=== PATIENT | male | born 1970 | race Caucasian/White ===

== ENCOUNTER 2022-11-22 14:41 | Inpatient (IN) | payer OTHER ==
[~2022-11-22] VITALS: Ht 175.3 cm; Wt 91.6 kg
[2022-11-22 15:48] LABS: BASOPHILS ABSOLUTE AUTO 0.06 K/mm3 (0.00-0.23); BASOPHILS PERCENT AUTO 1 % (0-2); EOSINOPHILS PERCENT AUTO 2 % (0-6); Hematocrit 45.9 % (37.0-53.0); Hemoglobin 16.6 g/dL (13.5-17.5); IMMATURE GRAN ABSOLUTE AUTO 0.04 K/mm3 (0.00-0.10); IMMATURE GRAN PERCENT AUTO 0 % (0-1); LYMPHOCYTES ABSOLUTE AUTO 2.16 K/mm3 (0.84-5.20); LYMPHOCYTES PERCENT AUTO 20 % (21-46); MONOCYTES ABSOLUTE AUTO 0.88 K/mm3 (0.16-1.47); MONOCYTES PERCENT AUTO 8 % (4-13); Mean Corpuscular HGB Conc 36.2 g/dL (31.5-36.5); Mean Corpuscular Volume 91 fL (80-100); Mean Platelet Volume 10.3 fL (9.1-12.4); NEUTROPHILS ABSOLUTE AUTO 7.65 K/mm3 (1.96-9.15); NEUTROPHILS PERCENT AUTO 70 % (41-73); Platelet Count 275 K/mm3 (150-400); RDW Coefficient Variation 12.8 % (11.7-14.2); RDW Standard Deviation 42.8 fL (35.1-46.3); Red Blood Cell Count 5.03 M/mm3 (4.30-5.90); White Blood Cell Count 10.99 K/mm3 (4.00-11.30)
[2022-11-22 16:05] LABS: Albumin, Blood 3.7 g/dL (3.4-5.0); Albumin/Globulin Ratio 1.1 (0.8-1.8); Bilirubin, Total 0.5 mg/dL (0.1-1.0); Bun/Creatinine Ratio 13.7 (12.0-20.0); Calcium, Blood 9.7 mg/dL (8.5-10.1); Creatinine, Blood 0.87 mg/dL (0.60-1.20); Globulin, Blood 3.4 g/dL (2.2-4.0); Potassium, Blood 3.8 mmol/L (3.5-5.5); Total Protein, Blood 7.1 g/dL (6.4-8.2)
[2022-11-22] MEDS ORDERED: CYCL10 PO (16:31)
[2022-11-22] MEDS ORDERED: QUET25 PO (16:32)
[2022-11-22] MEDS ORDERED: TRAZ100 PO (16:33)
[2022-11-22 16:46] LABS: Anti-Xa UFH, PHA Monitoring <0.10 IU/mL; Prothrombin Time Results 10.5 Sec (9.7-11.5)
[2022-11-22 20:01] VITALS: BP 139/88
[2022-11-23] VITALS (23 sets, daily range): BP systolic 102–157; BP diastolic 73–104
[2022-11-23 04:19] LABS: Anion Gap 7 mmol/L (6-16); Blood Urea Nitrogen 10 mg/dL (8-24); Bun/Creatinine Ratio 11.7 (12.0-20.0); CHOL/HDL RATIO 5.2; CO2, Blood 27 mmol/L (21-32); Calcium, Blood 8.6 mg/dL (8.5-10.1); Chloride, Blood 108 mmol/L (98-108); Cholesterol 197 mg/dL (50-200); Creatinine, Blood 0.85 mg/dL (0.60-1.20); Glomerular Filtration Rate 104 (60-); Glucose, Blood 114 mg/dL (70-99); HDL Cholesterol 38 mg/dL (>39); LDL/HDL RATIO 3.2; Low Density Lipoprotein Chol 122 mg/dL (0-110); Magnesium, Blood 1.8 mg/dL (1.6-2.4); Sodium, Blood 142 mmol/L (136-145); Triglycerides 184 mg/dL (30-160); Very Low Density Lipoprot Chol 36 mg/dL (6-32)
--- NOTE | 2022-11-23 07:35 | NUR ---
TRACE EVIDENCE TECHNICIAN SUMMARY ASSUMED CARE OF THE PT AT 1999 ON ADMISSION FROM THE ER. HE IS ALERT AND ORIENTED X4, COOPERATIVE WITH CARE. PT HAD CHEST PAIN THAT WAS RELIEVED WITH 4 MG OF IV MORPHINE. CURRENTLY ON HEPARIN DRIP MANAGED BY PHARMACY. PT USES URINAL INDEPENDENTLY. TROPONINS TRENDING UP. CARDIOLOGY CONSULT FOR TODAY. SINUS KRYSTEN ON TELE. SATURATIONS IN THE HIGH 90S ON RA. BP STABLE.
--- NOTE | 2022-11-23 10:27 | NUR ---
AM NOTES: PT ALERT AND ORIENTED AT BASELINE. DENIES NAUSEA AND VOMITING, HAS SOME CHEST SORENESS 3/10 THAT IS BETTER FROM YESTERDAY PER PT, VITALS HRR SR 60'S, SBP 100'S, SPO2 ABOVE 95% ON RA, AFEBRILE. AT THE BEDSIDE EARLIER WHEN DR BAILON CAME IN TO EXPLAIN PROCEDURE AND PLAN WITH THE PT. PT FOR ANGIO TODAY. STARTED LAODING DOSE OF PLAVIX THIS MORNING. MEDICATED WITH TYLENOL FOR NECK PAIN AND HEAD ACHE. NO OTHER COMPLAINS AT THIS TIME, PT RESTING IN BED, CALL LIGHTS IN [facility] CONTINUE TO MONITOR
--- NOTE | 2022-11-23 13:30 | NUR ---
PT ARRIVED BACK FROM THE [facility]ATE[facility]IST HAD 1 STENT ON PROX CIRC. VITALS HRR SR 60'S, SBP 120'S, SATS ABOVE 95% ON RA, AFEBRILE. RIGHT RADIAL SITE WITH TR BAND 10CC OF AIR. ECHO ONGOING RIGHT NOW. FAMILY AT THE BEDSIDE. NS RUNNING AT 200MLS/HR. DIET RESUMED, NO OTHER ISSUES AT THIS TIME, WILL CONTINUE TO MONITOR
--- NOTE | 2022-11-23 18:49 | NUR ---
PT SUMMARY: PT POST ANGIO TODAY WITH RIGHT RADIAL SITE FULLY RECOVERED, CLEAR DRESSING IN PLACE NO HEMATOME OR BLEEDING NOTED. PT COMPLIANT WITH RIGHT ARM RESTRICTIONS. DENIES CHEST PAIN/PRESSURE. PLAN TO DC IN AM IF NO ISSUES VITALS HAS BEEN STABLE. HAS BEEN AT THE BEDSIDE MOST OF THE SHIFT AWARE OF THE PLAN OF CARE. SERVICE DOG IN THE ROOM PER PT'S REQUEST. NO OTHER ISSUES AT THIS TIME. WILL REPORT TO ONCOMING SHIFT
[2022-11-24 04:17] VITALS: BP 101/74
[2022-11-24 04:22] LABS: BASOPHILS ABSOLUTE AUTO 0.06 K/mm3 (0.00-0.23); BASOPHILS PERCENT AUTO 1 % (0-2); EOSINOPHILS ABSOLUTE AUTO 0.23 K/mm3 (0.00-0.68); EOSINOPHILS PERCENT AUTO 2 % (0-6); Hematocrit 45.1 % (37.0-53.0); Hemoglobin 15.7 g/dL (13.5-17.5); IMMATURE GRAN ABSOLUTE AUTO 0.04 K/mm3 (0.00-0.10); IMMATURE GRAN PERCENT AUTO 0 % (0-1); LYMPHOCYTES ABSOLUTE AUTO 3.09 K/mm3 (0.84-5.20); LYMPHOCYTES PERCENT AUTO 31 % (21-46); MONOCYTES ABSOLUTE AUTO 0.88 K/mm3 (0.16-1.47); MONOCYTES PERCENT AUTO 9 % (4-13); Mean Corpuscular HGB 32.5 pg (26.0-34.0); Mean Corpuscular HGB Conc 34.8 g/dL (31.5-36.5); Mean Corpuscular Volume 93 fL (80-100); NEUTROPHILS ABSOLUTE AUTO 5.62 K/mm3 (1.96-9.15); NEUTROPHILS PERCENT AUTO 57 % (41-73); Platelet Count 237 K/mm3 (150-400); RDW Coefficient Variation 13.1 % (11.7-14.2); RDW Standard Deviation 44.6 fL (35.1-46.3); Red Blood Cell Count 4.83 M/mm3 (4.30-5.90); White Blood Cell Count 9.92 K/mm3 (4.00-11.30)
[2022-11-24 04:55] LABS: Albumin, Blood 3.4 g/dL (3.4-5.0); Bilirubin, Total 0.9 mg/dL (0.1-1.0); Calcium, Blood 8.9 mg/dL (8.5-10.1); Creatinine, Blood 0.91 mg/dL (0.60-1.20); Globulin, Blood 3.3 g/dL (2.2-4.0); Magnesium, Blood 2.1 mg/dL (1.6-2.4); Phosphorus, Blood 2.7 mg/dL (2.5-4.9); Total Protein, Blood 6.7 g/dL (6.4-8.2)
--- NOTE | 2022-11-24 06:27 | NUR ---
SHIFT SUMMARY PATIENT ALERT AND ORIENTED X4. PATIENT HAD NO COMPLAINTS OF CHEST PAIN OR SHORTNESS OF BREATH. PATIENT ON ROOM AIR. VITAL SIGNS STABLE. S/P ANGIOGRAM, NO BLEEDING OR BRUSING NOTED AT R RADIAL SITE, ARM BOARD IN PLACE. NO ACUTE ISSUES NOTED OVERNIGHT. WILL CONTINUE TO MONITOR. CALL LIGHT WITHIN [facility].
[2022-11-24 08:01] VITALS: BP 124/82
[2022-11-24] MEDS ORDERED: ASPI81CH PO (11:15)
[2022-11-24] MEDS ORDERED: CLOP75 PO (11:15)
[2022-11-24] MEDS ORDERED: ATOR80 (11:15)
[2022-11-24] MEDS ORDERED: TOPROL XL25 MG PO (11:16)
[2022-11-24 11:24] VITALS: BP 114/80
--- NOTE | 2022-11-24 12:15 | NUR ---
DISCHARGE SUMMARY PT A&OX4, VSS. PT, PT'S , AND SERVICE DOG IN ROOM. REVIEWED W/ PT AND DISCHARGE INSTRUCTIONS. CARE MANAGEMENT FACILITATING COMM[facility]ITY [facility] REFERRAL FROM [place] TO [facility] FOR PCP FOLLOW UP. PT INSTRUCTED TO FOLLOW UP W/ CARDIOLOGY WELL. DISCHARGE PACKET GIVEN TO PT, MEDS FAXED TO PT'S PHARMACY.
== END 2022-11-24 12:12 | disposition home or self-care (01) | DRG 247 ==
LOC: ER 14:41 → PCU 14:42 → ER 14:42 → PCU 14:42
PROVIDERS: Emergency Medicine; Family Medicine; Internal Medicine Interventional Cardiology; Nurse Practitioner Acute Care; ADMIT Internal Medicine
PROC: 027034Z Dilation of Coronary Artery, One Artery with Drug-eluting Intraluminal Device, Percutaneous Approach (ICD-10-PCS; principal; 2022-11-23)
PROC: B2111ZZ Fluoroscopy of Multiple Coronary Arteries using Low Osmolar Contrast (ICD-10-PCS; 2022-11-23)
PROC: 4A023N7 Measurement of Cardiac Sampling and Pressure, Left Heart, Percutaneous Approach (ICD-10-PCS; 2022-11-23)
DX: I21.4 Non-ST elevation (NSTEMI) myocardial infarction (principal); I45.10 Unspecified right bundle-branch block; R00.1 Bradycardia, unspecified; F43.10 Post-traumatic stress disorder, unspecified; I25.10 Atherosclerotic heart disease of native coronary artery without angina pectoris; G89.29 Other chronic pain; M54.9 Dorsalgia, unspecified; F51.04 Psychophysiologic insomnia; M79.7 Fibromyalgia; F41.9 Anxiety disorder, unspecified; M77.9 Enthesopathy, unspecified; F17.210 Nicotine dependence, cigarettes, uncomplicated; Z79.82 Long term (current) use of aspirin; Z88.5 Allergy status to narcotic agent; Z71.6 Tobacco abuse counseling; Z79.899 Other long term (current) drug therapy
CPT/HCPCS: 36415; 71045; 76937; 80048; 80053; 80061; 82947; 83036; 83735; 84100; 84484; 85025; 85347; 85520; 85610; 85730; 93005; 93010; 93306; 93454; 96365; 96366; 96375; 96376; 99152; 99153; 99285-25; A9270; C1725; C1769; C1874; C1887; C1894; C9600; G0378; J0461; J1644; J2250; J2270; J2405; J3010; J3246; J3475; J7030; J7050; Q9967

== ENCOUNTER 2025-02-25 18:11 | Emergency (ER) | payer OTHER ==
[~2025-02-25] VITALS: Ht 175.3 cm; Wt 97.5 kg
[~2025-02-25 18:11] MED LIST: ASPI81CH PO; ATOR80 PO; CLOP75 PO; CYCL10 PO; LIDO700A20 TOP; LISI5 PO; QUET25 PO; TOPROL XL25 MG PO; TRAZ100 PO; Voltaren100 GM TOP
[2025-02-25 18:32] VITALS: BP 137/94
[2025-02-25] MEDS ORDERED: Ketorolac Tromethamine 15mg Vial IV ONE (18:45)
[2025-02-25 19:01] LABS: BASOPHILS ABSOLUTE AUTO 0.04 K/mm3 (0.00-0.23); BASOPHILS PERCENT AUTO 0 % (0-2); EOSINOPHILS ABSOLUTE AUTO 0.07 K/mm3 (0.00-0.68); EOSINOPHILS PERCENT AUTO 1 % (0-6); Hematocrit 45.2 % (37.0-53.0); Hemoglobin 16.0 g/dL (13.5-17.5); IMMATURE GRAN ABSOLUTE AUTO 0.07 K/mm3 (0.00-0.10); IMMATURE GRAN PERCENT AUTO 1 % (0-1); LYMPHOCYTES ABSOLUTE AUTO 4.00 K/mm3 (0.84-5.20); LYMPHOCYTES PERCENT AUTO 31 % (21-46); MONOCYTES ABSOLUTE AUTO 0.86 K/mm3 (0.16-1.47); MONOCYTES PERCENT AUTO 7 % (4-13); Mean Corpuscular HGB Conc 35.4 g/dL (31.5-36.5); Mean Corpuscular Volume 91 fL (80-100); NEUTROPHILS ABSOLUTE AUTO 7.74 K/mm3 (1.96-9.15); NEUTROPHILS PERCENT AUTO 61 % (41-73); NRBC ABSOLUTE 0.00 K/mm3 (0.00-0.02); NRBC Auto 0.0 /100 WBC (0.0-0.2); Platelet Count 272 K/mm3 (150-400); RDW Coefficient Variation 13.1 % (11.7-14.2); RDW Standard Deviation 43.3 fL (35.1-46.3)
[2025-02-25 19:29] LABS: Alanine Aminotransfer (ALT/SGP 45.0 U/L (12-78); Albumin, Blood 4.2 g/dL (3.4-5.0); Albumin/Globulin Ratio 1.2 (0.8-1.8); Anion Gap 9.0 mmol/L (3-11); Aspartate Aminotrans (AST/SGOT 35.0 U/L (12-37); Bilirubin, Total 1.0 mg/dL (0.1-1.0); Blood Urea Nitrogen 18.0 mg/dL (8-24); CO2, Blood 26.0 mmol/L (21-32); Calcium, Blood 8.9 mg/dL (8.5-10.1); Chloride, Blood 105.0 mmol/L (98-108); Creatinine, Blood 0.91 mg/dL (0.60-1.20); Globulin, Blood 3.4 g/dL (2.2-4.0); Glucose, Blood 88.0 mg/dL (70-99); Potassium, Blood 3.5 mmol/L (3.5-5.5); Sodium, Blood 136.0 mmol/L (136-145); Total Protein, Blood 7.6 g/dL (6.4-8.2)
[2025-02-25] MEDS ORDERED: CEPH500 PO (22:03)
[2025-02-25] MEDS ORDERED: RX Prepack 6 Tabs Oxycodone 5mg UD ONE (22:05)
== END 2025-02-25 22:22 | disposition home or self-care (01) ==
LOC: ER 18:11
PROVIDERS: Student in an Organized Health Care Education/Training Program
DX: S62.522B Displaced fracture of distal phalanx of left thumb, initial encounter for open fracture (principal); I25.2 Old myocardial infarction; W23.0XXA Caught, crushed, jammed, or pinched between moving objects, initial encounter; Z88.5 Allergy status to narcotic agent; Z79.82 Long term (current) use of aspirin; Z79.899 Other long term (current) drug therapy; Z95.5 Presence of coronary angioplasty implant and graft
CPT/HCPCS: 29130; 73140; 80053; 85025; 90471; 90715; 96374; 99283-25; A9270; J1885